=== PATIENT | female | born 1965 | race Hispanic/Latino ===

== ENCOUNTER 2022-12-25 14:40 | Emergency (ER) | payer OTHER ==
[~2022-12-25] VITALS: Ht 154.9 cm; Wt 67.4 kg
[2022-12-25] MEDS ORDERED: ZPAK PO (15:15)
[2022-12-25] MEDS ORDERED: BENZONATATE200 MG PO (15:15)
[2022-12-25 15:31] VITALS: BP 123/75
== END 2022-12-25 15:41 | disposition home or self-care (01) | DRG 203 ==
LOC: ED 14:40
DX: J40 Bronchitis, not specified as acute or chronic (principal)